=== PATIENT | female | born 1955 | race Caucasian/White ===

== ENCOUNTER → 2019-07-28 | Outpatient (CLI) | payer MEDICARE, MEDICAID ==
[~2019-07-28] MED LIST: ASPIRIN81 M1 PO; CLARITIN10 MG PO; MEDROL DOSEPAK4 MG PO; NICOTINE; NKHM; PROVENTIL0.09 MG/AC IH; ZITHROMAX Z PA250 MG PO
== END | disposition home or self-care (01) ==
LOC: MAMMO 09:22
DX: Z12.31 Encounter for screening mammogram for malignant neoplasm of breast (principal)

== ENCOUNTER → 2019-10-07 | Outpatient (CLI) | payer OTHER | END | disposition home or self-care (01) | LOC: MAMMO 08:50 | DX: N60.01 Solitary cyst of right breast (principal) ==